=== PATIENT | female | born 1980 | race American Indian/Alaskan Native ===

== ENCOUNTER 2020-12-28 04:20 | Emergency (ER) | payer SELFPAY ==
[2020-12-28] MEDS ORDERED: PANTOPRAZOLE 40 MG INJ IV ONE (10:16)
[2020-12-28] MEDS ORDERED: ONDANSETRON 4 MG/2 ML INJ IV ONE (10:16)
[2020-12-28] MEDS ORDERED: MORPHINE 4 MG/1 ML INJ IV ONE (10:16)
--- NOTE | 2020-12-28 10:16 | Emergency Department Report ---
ED General Adult HPI - General Chief complaint: Abdominal Pain Stated complaint: BLOODY EMESIS Time Seen by Provider: 12/28/20 08:37 Source: patient Mode of arrival: Ambulatory Limitations: No Limitations - History of Present Illness Initial comments: 40-year-old -[place] female patient presents with complaints of upper abdominal pain x2 days. She denies any past medical history, but admits to tubal ligation and tubal removal surgery years ago. Patient states she has a loss of appetite. She denies any chest pain, cough, shortness of breath, or diarrhea. She states that she has not eaten in 2 days and has been taking Aleve for her pain. Today she vomited a very small amount of bright red blood. She denies melena/hematochezia or history of PUD/GERD. She also denies alcohol use. Patient rates her current pain as a 7/10 in severity. Radiation: back - Related Data Previous Rx's Medication Instructions Recorded Last Taken Type Ibuprofen [Motrin 800 MG tab] 800 mg PO Q8HR PRN #20 tablet 12/28/20 Unknown Rx Ondansetron [Zofran Odt] 4 mg PO Q8HR PRN #20 tab.rapdis 12/28/20 Unknown Rx Sulfamethoxazole/Trimethoprim 1 each PO BID 5 Days #10 tablet 12/28/20 Unknown Rx [Bactrim DS TAB] traMADoL [Ultram 50 MG tab] 50 - 100 mg PO Q6HR PRN #15 tablet 12/28/20 Unknown Rx Allergies Allergy/AdvReac Type Severity Reaction Status Date / Time No Known Allergies Allergy Unverified 12/28/20 04:46 ED Review of Systems ROS: Stated complaint: BLOODY EMESIS Other details as noted in HPI Constitutional: denies: chills, fever, malaise, weakness Respiratory: denies: cough, shortness of breath Cardiovascular: denies: chest pain, palpitations Gastrointestinal: abdominal pain, nausea, vomiting. denies: diarrhea, constipation, hematemesis, melena, hematochezia Genitourinary: denies: urgency, dysuria, frequency, hematuria, discharge, abnormal menses Skin: denies: lesions, change in color Neurological: denies: headache Hematological/Lymphatic: denies: easy bleeding, swollen glands ED Past Medical Hx - Past Medical History Previous Medical History?: No - Surgical History Past Surgical History?: Yes Additional Surgical History: ectopic preg - Medications Home Medications: Home Medications Medication Instructions Recorded Confirmed Last Taken Type Ibuprofen [Motrin 800 MG tab] 800 mg PO Q8HR PRN #20 tablet 12/28/20 Unknown Rx Ondansetron [Zofran Odt] 4 mg PO Q8HR PRN #20 tab.rapdis 12/28/20 Unknown Rx Sulfamethoxazole/Trimethoprim 1 each PO BID 5 Days #10 tablet 12/28/20 Unknown Rx [Bactrim DS TAB] traMADoL [Ultram 50 MG tab] 50 - 100 mg PO Q6HR PRN #15 tablet 12/28/20 Unknown Rx ED Physical Exam - General Limitations: No Limitations General appearance: alert, in no apparent distress - Head Head exam: Present: atraumatic, normocephalic - Eye Eye exam: Present: normal appearance. Absent: scleral icterus - Neck Neck exam: Absent: tenderness - Respiratory Respiratory exam: Present: normal lung sounds bilaterally. Absent: respiratory distress - Cardiovascular Cardiovascular Exam: Present: regular rate, normal rhythm - GI/Abdominal GI/Abdominal exam: Present: soft, tenderness (Epigastric, periumbilical), normal bowel sounds. Absent: distended, rigid - Neurological Exam Neurological exam: Present: alert, oriented X3 - Psychiatric Psychiatric exam: Present: normal affect, normal mood - Skin Skin exam: Present: warm, dry, intact, normal color. Absent: rash, cyanosis, diaphoretic, erythema ED Course Vital Signs 12/28/20 12/28/20 04:49 17:45 Temperature 98.1 F Pulse Rate 84 89 Respiratory 18 20 Rate Blood Pressure 139/78 Blood Pressure 118/66 [Left] O2 Sat by Pulse 98 100 Oximetry ED Medical Decision Making - Lab Data Result diagrams: 12/28/20 09:24 12/28/20 09:24 Lab Results 12/28/20 12/28/20 12/28/20 Range/Units 09:24 09:24 09:24 WBC 5.6 (4.5-11.0) K/mm3 RBC 4.60 (3.65-5.03) M/mm3 Hgb 12.7 (10.1-14.3) gm/dl Hct 36.8 (30.3-42.9) % MCV 80 (79-97) fl MCH 28 (28-32) pg MCHC 34 (30-34) % RDW 15.6 H (13.2-15.2) % Plt Count 250 (140-440) K/mm3 Lymph % (Auto) 45.2 H (13.4-35.0) % Dillon % (Auto) 15.8 H (0.0-7.3) % Eos % (Auto) 1.0 (0.0-4.3) % Baso % (Auto) 0.9 (0.0-1.8) % Lymph # (Auto) 2.5 (1.2-5.4) K/mm3 Dillon # (Auto) 0.9 H (0.0-0.8) K/mm3 Eos # (Auto) 0.1 (0.0-0.4) K/mm3 Baso # (Auto) 0.1 (0.0-0.1) K/mm3 Seg Neutrophils % 37.1 L (40.0-70.0) % Seg Neutrophils # 2.1 (1.8-7.7) K/mm3 Sodium 139 (137-145) mmol/L Potassium 4.6 (3.6-5.0) mmol/L Chloride 103.2 (98-107) mmol/L Carbon Dioxide 29 (22-30) mmol/L Anion Gap 11 mmol/L BUN 8 (7-17) mg/dL Creatinine 0.7 (0.6-1.2) mg/dL Estimated GFR > 60 ml/min BUN/Creatinine Ratio 13 % Glucose 88 (65-100) mg/dL Calcium 9.4 (8.4-10.2) mg/dL Total Bilirubin 0.90 (0.1-1.2) mg/dL AST 1149 H (5-40) units/L ALT 1708 H (7-56) units/L Alkaline Phosphatase 153 H (35-129) units/L Total Protein 7.6 (6.3-8.2) g/dL Albumin 4.0 (3.9-5) g/dL Albumin/Globulin Ratio 1.1 % Lipase 45 (13-60) units/L HCG, Qual Negative (Negative) Urine Color (Yellow) Urine Turbidity (Clear) Urine pH (5.0-7.0) Ur Specific [place] (1.003-1.030) Urine Protein (Negative) mg/dL Urine Glucose (UA) (Negative) mg/dL Urine Ketones (Negative) mg/dL Urine Blood (Negative) Urine Nitrite (Negative) Urine Bilirubin (Negative) Urine Urobilinogen (<2.0) mg/dL Ur Leukocyte Esterase (Negative) Urine WBC (Auto) (0.0-6.0) /HPF Urine RBC (Auto) (0.0-6.0) /HPF U Epithel Cells (Auto) (0-13.0) /HPF Urine Bacteria (Auto) (Negative) /HPF Urine Mucus /HPF Hepatitis A IgM Ab (NonReactive) Hep Bs Antigen (Negative) Hep B Core IgM Ab (NonReactive) Hepatitis C Antibody (NonReactive) 12/28/20 12/28/20 Range/Units 12:31 16:00 WBC (4.5-11.0) K/mm3 RBC (3.65-5.03) M/mm3 Hgb (10.1-14.3) gm/dl Hct (30.3-42.9) % MCV (79-97) fl MCH (28-32) pg MCHC (30-34) % RDW (13.2-15.2) % Plt Count (140-440) K/mm3 Lymph % (Auto) (13.4-35.0) % Dillon % (Auto) (0.0-7.3) % Eos % (Auto) (0.0-4.3) % Baso % (Auto) (0.0-1.8) % Lymph # (Auto) (1.2-5.4) K/mm3 Dillon # (Auto) (0.0-0.8) K/mm3 Eos # (Auto) (0.0-0.4) K/mm3 Baso # (Auto) (0.0-0.1) K/mm3 Seg Neutrophils % (40.0-70.0) % Seg Neutrophils # (1.8-7.7) K/mm3 Sodium (137-145) mmol/L Potassium (3.6-5.0) mmol/L Chloride (98-107) mmol/L Carbon Dioxide (22-30) mmol/L Anion Gap mmol/L BUN (7-17) mg/dL Creatinine (0.6-1.2) mg/dL Estimated GFR ml/min BUN/Creatinine Ratio % Glucose (65-100) mg/dL Calcium (8.4-10.2) mg/dL Total Bilirubin (0.1-1.2) mg/dL AST (5-40) units/L ALT (7-56) units/L Alkaline Phosphatase (35-129) units/L Total Protein (6.3-8.2) g/dL Albumin (3.9-5) g/dL Albumin/Globulin Ratio % Lipase (13-60) units/L HCG, Qual (Negative) Urine Color [place] (Yellow) Urine Turbidity Cloudy (Clear) Urine pH 5.0 (5.0-7.0) Ur Specific [place] 1.011 (1.003-1.030) Urine Protein 30 mg/dl (Negative) mg/dL Urine Glucose (UA) Neg (Negative) mg/dL Urine Ketones Neg (Negative) mg/dL Urine Blood Mod (Negative) Urine Nitrite Pos (Negative) Urine Bilirubin Neg (Negative) Urine Urobilinogen 2.0 (<2.0) mg/dL Ur Leukocyte Esterase Mod (Negative) Urine WBC (Auto) 40.0 H (0.0-6.0) /HPF Urine RBC (Auto) 3.0 (0.0-6.0) /HPF U Epithel Cells (Auto) 19.0 H (0-13.0) /HPF Urine Bacteria (Auto) 1+ (Negative) /HPF Urine Mucus 1+ /HPF Hepatitis A IgM Ab Reactive A (NonReactive) Hep Bs Antigen Nonreactive (Negative) Hep B Core IgM Ab Non-reactive (NonReactive) Hepatitis C Antibody Non-reactive (NonReactive) - Radiology Data Radiology results: report reviewed ULTRASOUND ABDOMEN, LIMITED (RIGHT UPPER QUADRANT) INDICATION: pain, AST and ALT elevated. COMPARISON: None available. FINDINGS: Pancreas: Visualized portion shows no significant abnormality. Liver: Normal. Gallbladder: Normal. No gallstones or gallbladder wall thickening. Bile ducts: Normal. Common Bile Duct measures 1-2 mm. Free fluid: None. Additional Findings: The right kidney and abdominal aorta were also evaluated and unremarkable in appearance. IMPRESSION: 1. No sonographic abnormality of the right upper quadrant. - Medical Decision Making 40-year-old -[place] female patient presents with complaints of upper abdominal pain x2 days. She denies any past medical history, but admits to tubal ligation and tubal removal surgery years ago. Patient states she has a loss of appetite. She denies any chest pain, cough, shortness of breath, or diarrhea. She states that she has not eaten in 2 days and has been taking Aleve for her pain. Today she vomited a very small amount of bright red blood. She denies melena/hematochezia or history of PUD/GERD. She also denies alcohol use. Patient rates her current pain as a 7/10 in severity. Vitals and CBC are within normal limits. CMP shows significantly elevated ALT AST. UA shows UTI with positive nitrites. Ultrasound of the right upper quadrant performed and is negative for any acute abnormalities. CT abdomen is negative for any acute abnormalities. Hepatitis panel shows + hepatitis A. Patient's pain is controlled and no vomiting observed here in ED. She is well- appearing, her vitals within normal limits, she is stable for discharge home. Patient to follow-up with GI within 2 to 3 days. Discussed in great detail signs and symptoms that should prompt immediate return to the emergency department with patient who verbalizes understanding. Discussed patient with Dr. Troncoso who agrees with plan of care. Critical care attestation.: If time is entered above; I have spent that time in minutes in the direct care of this critically ill patient, excluding procedure time. ED Disposition Clinical Impression: Hepatitis A Qualifiers: Hepatic coma status: with hepatic coma Qualified Code(s): B15.0 - Hepatitis A with hepatic coma UTI (urinary tract infection) Qualifiers: Urinary tract infection type: acute cystitis Hematuria presence: without hematuria Qualified Code(s): N30.00 - Acute cystitis without hematuria Disposition: HOME / SELF CARE / HOMELESS Is pt being admited?: No Condition: Stable Instructions: Hepatitis A, Urinary Tract Infection, Adult, Abdominal Pain (ED) Prescriptions: Sulfamethoxazole/Trimethoprim [Bactrim DS TAB] 1 each PO BID 5 Days #10 tablet Ibuprofen [Motrin 800 MG tab] 800 mg PO Q8HR PRN #20 tablet PRN Reason: pain traMADoL [Ultram 50 MG tab] 50 - 100 mg PO Q6HR PRN #15 tablet PRN Reason: Pain , Severe (7-10) Ondansetron [Zofran Odt] 4 mg PO Q8HR PRN #20 tab.rapdis PRN Reason: Nausea Referrals: [facility] [Provider Group] - 2-3 Days Forms: Work/School Release Form(ED)
[2020-12-28 10:34] LABS: Basophils # (Auto) 0.1 K/mm3 (0.0-0.1); Basophils % (Auto) 0.9 % (0.0-1.8); Eosinophils # (Auto) 0.1 K/mm3 (0.0-0.4); Hematocrit 36.8 % (30.3-42.9); Hemoglobin 12.7 gm/dl (10.1-14.3); Lymphocytes # (Auto) 2.5 K/mm3 (1.2-5.4); Lymphocytes % (Auto) 45.2 % (13.4-35.0); Mean Corpuscular HGB Conc 34 % (30-34); Mean Corpuscular Volume 80 fl (79-97); Monocytes # (Auto) 0.9 K/mm3 (0.0-0.8); Monocytes % (Auto) 15.8 % (0.0-7.3); Red Cell Distribution Width 15.6 % (13.2-15.2)
[2020-12-28 11:10] LABS: Platelet Count 250 K/mm3 (140-440)
[2020-12-28 11:21] LABS: Blood Urea Nitrogen 8 mg/dL (7-17); Calcium 9.4 mg/dL (8.4-10.2); Hemolysis Index 3
[2020-12-28 11:28] LABS: BUN/Creatinine Ratio 13
[2020-12-28 11:36] LABS: Alanine Aminotransferase 1708 units/L (7-56)
[2020-12-28 12:54] LABS: Bacteria,Urine 1+ /HPF (Negative); Bilirubin,Urine NEG (Negative); Blood,Urine MOD (Negative); Color,Urine Amber (Yellow); Mucus,Urine 1+ /HPF
--- NOTE | 2020-12-28 14:38 | Ultrasound Report ---
ULTRASOUND ABDOMEN, LIMITED (RIGHT UPPER QUADRANT) INDICATION: pain, AST and ALT elevated. COMPARISON: None available. FINDINGS: Pancreas: Visualized portion shows no significant abnormality. Liver: Normal. Gallbladder: Normal. No gallstones or gallbladder wall thickening. Bile ducts: Normal. Common Bile Duct measures 1-2 mm. Free fluid: None. Additional Findings: The right kidney and abdominal aorta were also evaluated and unremarkable in dina earance. IMPRESSION: 1. No sonographic abnormality of the right upper quadrant. Signer Name: Jenny Henderson MD Signed: 12/28/2020 2:34 PM Workstation Name: [id number]
--- NOTE | 2020-12-28 15:39 | Cat Scan Report ---
CT abdomen pelvis w con INDICATION / CLINICAL INFORMATION: Acute epigstric abdominal pain, severly elevated LFT's. TECHNIQUE: Axial CT imaging of abdomen and pelvis was obtained with IV contrast. Coronal and sagittal reformatte d imaging obtained and reviewed. All CT scans at this location are performed using CT dose reduction for ALARA by means of automated exposure control. COMPARISON: Limited abdominal ultrasound, earlier today FINDINGS: CT abdomen with contrast demonstrates normal appearance of the liver, spleen, pancreas, kidneys, and adrenal glands. There is a tiny simple cyst in the upper pole of the right kidney, 1.0 cm. Both kidne ys are otherwise unremarkable. Abdominal aorta is normal. No adenopathy. Gallbladder is visualized an d is unremarkable. No biliary dilatation. CT pelvis with contrast demonstrates a right ovarian cyst measuring 2.5 cm. No associated free fluid. Uterus is mildly enlarged but otherwise unremarkable. No additional pelvic mass or focal inflammator y change noted. Large amount of stool is seen throughout the colon. The GI tract is otherwise unremarkable. The appen ronan is either absent or not visualized. Visualized lung bases are clear. No acute significant osseous abnormality. IMPRESSION: 1. No acute finding within the abdomen or pelvis. The source for the patient's elevated liver enzymes is not identified. 2. 2.5 cm right ovarian cyst. 3. Moderate amount retained stool throughout the colon suggesting constipation. Signer Name: Jenny Henderson MD Signed: 12/28/2020 3:35 PM Workstation Name: [id number]
[2020-12-28] MEDS ORDERED: KETOROLAC 30 MG/1 ML INJ IV ONE (15:59)
[2020-12-28 16:49] LABS: Hepatitis C Virus Antibody Non-Reactive (NonReactive)
[2020-12-28 16:55] LABS: Hepatitis B Surface Antigen Nonreactive (Negative)
[2020-12-28 17:46] VITALS: BP 118/66
== END 2020-12-28 17:45 | disposition home or self-care (01) ==
LOC: ED 04:20
DX: B15.0 Hepatitis A with hepatic coma (principal); N39.0 Urinary tract infection, site not specified; Z98.890 Other specified postprocedural states; Z79.899 Other long term (current) drug therapy
CPT/HCPCS: 36415; 74177; 76705; 80053; 80074; 81001; 83690; 84703; 85025; 87076; 87086; 87186; 96374; 96375; 99284; C9113; J1885; J2270; J2405; Q9967